=== PATIENT | male | born 2000 | race Caucasian/White ===

== ENCOUNTER 2020-05-04 00:45 | Emergency (ER) | payer MEDICAID ==
[~2020-05-04] VITALS: Ht 182.9 cm; Wt 99.8 kg
[2020-05-04 00:53] VITALS: BP 163/97
--- NOTE | 2020-05-04 00:53 | NUR ---
to bed ambulatory
--- NOTE | 2020-05-04 01:03 | NUR ---
Dr. Holt examining patient.
--- NOTE | 2020-05-04 01:07 | NUR ---
PATIENT 19 Y.O. MALE BIB SELF FOR C/O RIGHT SHOULDER PAIN OF 9/10 OF 2 HOURS AGO, DESCRIBED THROBBING AND SHARP. PATIENT STATED HE FELT HIS SHOULDER "POPPED". PT ABLE TO MOVE ARM WITHOUTH DIFFICULTY, REMOVING SWEATSHIRT INDEPENDENTLY. ROM WAS INTACT. SEE FULL ASSESSMENT FOR FURTHER DETAILS. MED HX: HERNIA ALLERGY HX: NKA
[2020-05-04] MEDS ORDERED: KETOROLAC 60 MG/2 ML VIAL IM ONE (01:10)
--- NOTE | 2020-05-04 01:16 | NUR ---
X-Ray at bedside.
[2020-05-04] MEDS ORDERED: IBUP-2213 PO (01:28)
[2020-05-04] MEDS ORDERED: IBUPROFEN 800 MG TAB PO ONE (01:30)
[2020-05-04 01:35] VITALS: BP 163/97
== END 2020-05-04 01:35 | disposition home or self-care (01) ==
LOC: MED 00:45
DX: M25.511 Pain in right shoulder (principal); F12.90 Cannabis use, unspecified, uncomplicated; Z79.899 Other long term (current) drug therapy; Z98.890 Other specified postprocedural states
CPT/HCPCS: 73030; 99283; J1885